=== PATIENT | male | born 1960 | race Caucasian/White ===

== ENCOUNTER 2016-09-06 20:55 | Observation (INO) | payer MEDICAID ==
[~2016-09-06] VITALS: Ht 190.5 cm; Wt 77.5 kg
[~2016-09-06 20:55] MED LIST: AMITRIPTYLINE H50 M1 PO; AMOXICILLIN 8751 TAB PO; AMOXICILLIN/CLA1 TA1 PO; AUGMENTIN XR 101 TER PO; CIPRO 500MG TA500 MG PO; CLEOCIN HC150 MG/CAP PO; CLEOCIN HCL300 MG PO; CLONAZEPAM2 M1 PO; CLONAZEPAM2 MG PO; DAZIDOX10 MG PO; DILAUDID 2MG TAB2 MG PO; DILAUDID 4MG TAB4 MG PO; ELAVIL75 MG PO; ERY-TAB250 M1 PO; FLAGYL500 MG PO; HCTZ 25MG TAB25 MG PO; KLONOPIN 0.5MG0.5 MG PO; KLONOPIN 1MG1 MG PO; KLONOPIN2 MG PO; LEVAQUIN 5500 MG/TA1 PO; LORTAB 7.5/5001 TAB PO; METHADONE H10 MG/TAB PO; METRONIDAZOLE500 MG PO; MORPHINE 1515 MG/TAB PO; NO HOME MEDICATIONS; NORCO 325 MG-101 TAB PO; NORCO 325 MG-51 TAB PO; NORCO 325 MG-7.1 TAB PO; OXYCONTIN15 MG PO; PERCOCET 325 MG1 TA2 PO; PERCOCET 325 MG1 TAB PO; PHENERGAN 25 TA25 MG PO; PHENERGAN25 MG RC; PRINIVIL20 MG PO; PROMETHAZINE12.5 M5 PO; ROXICODONE 55 MG/TAB PO; ULTRAM 50MG TAB50 MG PO; XANAX 0.5MG0.5 MG PO; ZOFRAN ODT4 MG PO; ZOFRAN ODT8 MG PO; ZOFRAN8 MG PO; [UNRECOGNIZED DRUG - REMARK]
[2016-09-06 21:29] LABS: PH 7 (5-8); SQUAMOUS EPITHELIAL None Seen /hpf; URINE APPEARANCE Clear; URINE BACTERIA None Seen /hpf; URINE BILIRUBIN Negative (NEGATIVE); URINE BLOOD Negative (NEGATIVE); URINE GLUCOSE Negative (NEGATIVE); URINE KETONE Negative (NEGATIVE); URINE UROBILINOGEN Negative (NEGATIVE); URINE WBC 0-2 /hpf
[2016-09-06 21:34] LABS: URINE COLOR Yellow
[2016-09-06 23:42] LABS: BASO % 0.2 % (0.0-2.0); EOS % 0.1 % (0-4.0); GRAN # 13.3 (1.4-6.5); HEMATOCRIT 40.9 % (42.0-52.0); LYMPH % 6.9 % (20.0-51.0); MEAN CELL VOLUME 82 fl (80.0-100.0); MEAN CORPUSCULAR HEMOGLOBIN 28 pg (27.0-31.0); MEAN CORPUSCULAR HGB CONC 34 g/dl (33.0-37.0); MONO # 0.7 (0.1-0.6); MONO % 4.4 % (1.7-9.3); PLATELET COUNT 309 K/mm3 (130-400); RED BLOOD COUNT 4.99 M/mm3 (4.20-5.60); REDCELL DISTRIBUTION WIDTH-CV 15.8 % (11.5-14.5); WHITE BLOOD COUNT 15.1 K/mm3 (4.8-10.8)
[2016-09-06 23:53] LABS: ADJUSTED CALCIUM 9.5 mg/dL (8.4-10.2); ALBUMIN 4.1 gm/dL (3.5-5.0); BILIRUBIN,TOTAL 0.7 mg/dL (0.0-1.0); CALCIUM 9.6 mg/dL (8.4-10.2); CREATININE, serum 1.29 mg/dL (0.66-1.25); POTASSIUM 4.6 mmol/L (3.4-5.0); TOTAL PROTEIN 8.3 gm/dL (6.4-8.2)
[2016-09-07 01:35] VITALS: BP 134/86; PULSE 69; TEMP 98.5
[2016-09-07 06:11] VITALS: BP 113/65; PULSE 68; TEMP 98.2
[2016-09-07 09:32] VITALS: BP 134/73; PULSE 66; TEMP 98.7
[2016-09-07 13:09] VITALS: BP 127/72; PULSE 79; TEMP 98
[2016-09-07 17:08] VITALS: BP 107/62; PULSE 61; TEMP 98.1
[2016-09-07 21:53] VITALS: BP 142/81; PULSE 99; TEMP 97.6
[2016-09-08 02:07] VITALS: BP 124/83; PULSE 91; TEMP 98.1
[2016-09-08 04:41] VITALS: BP 125/68; PULSE 72; TEMP 98
[2016-09-08 06:43] LABS: HEMATOCRIT 37.2 % (42.0-52.0); HEMOGLOBIN 12.1 g/dl (13.5-18.0); MEAN CELL VOLUME 84 fl (80.0-100.0); MEAN CORPUSCULAR HEMOGLOBIN 27 pg (27.0-31.0); MEAN CORPUSCULAR HGB CONC 33 g/dl (33.0-37.0); MEAN PLATELET VOLUME 11.7 fl (7.4-10.4); PLATELET COUNT 304 K/mm3 (130-400); RED BLOOD COUNT 4.42 M/mm3 (4.20-5.60); REDCELL DISTRIBUTION WIDTH-CV 15.4 % (11.5-14.5); WHITE BLOOD COUNT 10.6 K/mm3 (4.8-10.8)
[2016-09-08 07:02] LABS: CALCIUM 9.1 mg/dL (8.4-10.2); CREATININE, serum 1.43 mg/dL (0.66-1.25); POTASSIUM 3.9 mmol/L (3.4-5.0)
[2016-09-08 10:51] VITALS: BP 125/78; PULSE 70; TEMP 98.4
== END 2016-09-08 11:30 | disposition home or self-care (01) ==
LOC: COL.ER 20:55 → SURG 09-07 01:08 → COL.ER 09-07 01:08 → SURG 09-08 11:30
PROVIDERS: Emergency Medicine; Surgery
DX: K56.69 Other intestinal obstruction (principal); G89.29 Other chronic pain; F17.210 Nicotine dependence, cigarettes, uncomplicated
CPT/HCPCS: G0378; J1170; J1650; J1885; J2405; J7030; J7120; Q9967

== ENCOUNTER 2016-09-11 12:37 | Emergency (ER) | payer MEDICAID ==
[~2016-09-11] VITALS: Ht 190.5 cm; Wt 90.9 kg
[2016-09-11 12:41] VITALS: TEMP 97.7
[2016-09-11 13:26] LABS: BASO # 0.1 (0.0-0.2); BASO % 0.4 % (0.0-2.0); EOS # 0.4 (0.0-0.7); EOS % 2.4 % (0-4.0); GRAN % 76.3 % (42.2-75.2); HEMATOCRIT 45.4 % (42.0-52.0); LYMPH # 2.4 (1.2-3.4); LYMPH % 15.1 % (20.0-51.0); MEAN CELL VOLUME 84 fl (80.0-100.0); MEAN CORPUSCULAR HEMOGLOBIN 28 pg (27.0-31.0); MEAN CORPUSCULAR HGB CONC 33 g/dl (33.0-37.0); MEAN PLATELET VOLUME 10.4 fl (7.4-10.4); MONO # 0.8 (0.1-0.6); PLATELET COUNT 467 K/mm3 (130-400); RED BLOOD COUNT 5.43 M/mm3 (4.20-5.60); REDCELL DISTRIBUTION WIDTH-CV 15.9 % (11.5-14.5); WHITE BLOOD COUNT 15.7 K/mm3 (4.8-10.8)
[2016-09-11 13:33] LABS: ADJUSTED CALCIUM 9.9 mg/dL (8.4-10.2); ALBUMIN 4.9 gm/dL (3.5-5.0); BILIRUBIN,TOTAL 0.6 mg/dL (0.0-1.0); CALCIUM 10.6 mg/dL (8.4-10.2); CREATININE, serum 2.01 mg/dL (0.66-1.25); POTASSIUM 4.6 mmol/L (3.4-5.0); TOTAL PROTEIN 9.3 gm/dL (6.4-8.2)
[2016-09-11] MEDS ORDERED: ZOFRAN ODT4 MG PO (15:09)
[2016-09-11 15:35] VITALS: BP 136/91; PULSE 84
== END 2016-09-11 15:37 | disposition home or self-care (01) ==
LOC: COL.ER 12:37
PROVIDERS: Emergency Medicine
DX: R10.9 Unspecified abdominal pain (principal); R11.10 Vomiting, unspecified
CPT/HCPCS: J1170; J2550; J2765; J7030

== ENCOUNTER 2016-10-28 19:45 | Emergency (ER) | payer MEDICAID ==
[~2016-10-28] VITALS: Ht 190.5 cm; Wt 93.2 kg
[2016-10-28 19:48] VITALS: BP 142/96; TEMP 99.7
[2016-10-28 20:44] LABS: BASO # 0.1 (0.0-0.2); BASO % 0.8 % (0.0-2.0); EOS # 0.6 (0.0-0.7); EOS % 4.3 % (0-4.0); GRAN # 9.1 (1.4-6.5); GRAN % 68.9 % (42.2-75.2); HEMOGLOBIN 12.1 g/dl (13.5-18.0); LYMPH # 2.4 (1.2-3.4); LYMPH % 18.1 % (20.0-51.0); MEAN CELL VOLUME 86 fl (80.0-100.0); MEAN CORPUSCULAR HEMOGLOBIN 28 pg (27.0-31.0); MEAN CORPUSCULAR HGB CONC 33 g/dl (33.0-37.0); MEAN PLATELET VOLUME 10.7 fl (7.4-10.4); MONO % 7.4 % (1.7-9.3); PLATELET COUNT 353 K/mm3 (130-400); RED BLOOD COUNT 4.27 M/mm3 (4.20-5.60); REDCELL DISTRIBUTION WIDTH-CV 16.7 % (11.5-14.5); WHITE BLOOD COUNT 13.2 K/mm3 (4.8-10.8)
[2016-10-28 20:52] LABS: HEMATOCRIT 36.6 % (42.0-52.0)
[2016-10-28 20:53] LABS: ADJUSTED CALCIUM 9.3 mg/dL (8.4-10.2); BILIRUBIN,TOTAL 0.5 mg/dL (0.0-1.0); CALCIUM 9.3 mg/dL (8.4-10.2); CREATININE, serum 1.45 mg/dL (0.66-1.25); POTASSIUM 3.7 mmol/L (3.4-5.0); TOTAL PROTEIN 7.5 gm/dL (6.4-8.2)
[2016-10-28 22:29] LABS: PH 8 (5-8); SQUAMOUS EPITHELIAL None Seen /hpf; URINE APPEARANCE Hazy; URINE BACTERIA None Seen /hpf; URINE BILIRUBIN Negative (NEGATIVE); URINE BLOOD Negative (NEGATIVE); URINE COLOR Yellow; URINE GLUCOSE Negative (NEGATIVE); URINE KETONE Negative (NEGATIVE); URINE RBC 0-2 /hpf; URINE UROBILINOGEN Negative (NEGATIVE); URINE WBC 0-2 /hpf
[2016-10-28] MEDS ORDERED: PHENERGAN 25 TA25 MG PO (23:06)
[2016-10-28 23:48] VITALS: PULSE 64
== END 2016-10-28 23:48 | disposition home or self-care (01) ==
LOC: COL.ER 19:45
PROVIDERS: Emergency Medicine
DX: R11.2 Nausea with vomiting, unspecified (principal); R10.84 Generalized abdominal pain
CPT/HCPCS: J1170; J2405; J2550; J7030

== ENCOUNTER 2016-11-24 17:00 | Emergency (ER) | payer MEDICAID ==
[~2016-11-24] VITALS: Ht 190.5 cm; Wt 90.9 kg
[2016-11-24 17:05] VITALS: TEMP 98.4
[2016-11-24] MEDS ORDERED: ZOFRAN ODT8 MG PO (17:56)
[2016-11-24 18:25] LABS: BASO # 0.1 (0.0-0.2); BASO % 0.5 % (0.0-2.0); EOS # 0.3 (0.0-0.7); EOS % 2.3 % (0-4.0); GRAN # 10.6 (1.4-6.5); GRAN % 77.8 % (42.2-75.2); HEMATOCRIT 42.5 % (42.0-52.0); HEMOGLOBIN 14.1 g/dl (13.5-18.0); LYMPH # 1.8 (1.2-3.4); LYMPH % 13.1 % (20.0-51.0); MEAN CELL VOLUME 85 fl (80.0-100.0); MEAN CORPUSCULAR HEMOGLOBIN 28 pg (27.0-31.0); MEAN CORPUSCULAR HGB CONC 33 g/dl (33.0-37.0); MEAN PLATELET VOLUME 10.9 fl (7.4-10.4); MONO # 0.8 (0.1-0.6); MONO % 5.9 % (1.7-9.3); PLATELET COUNT 365 K/mm3 (130-400); RED BLOOD COUNT 5.02 M/mm3 (4.20-5.60); REDCELL DISTRIBUTION WIDTH-CV 16.6 % (11.5-14.5); WHITE BLOOD COUNT 13.6 K/mm3 (4.8-10.8)
[2016-11-24 19:12] LABS: ADJUSTED CALCIUM 9.3 mg/dL (8.4-10.2); ALBUMIN 4.5 gm/dL (3.5-5.0); BILIRUBIN,TOTAL 0.6 mg/dL (0.0-1.0); CALCIUM 9.7 mg/dL (8.4-10.2); CREATININE, serum 1.8 mg/dL (0.66-1.25); POTASSIUM 4.3 mmol/L (3.4-5.0); TOTAL PROTEIN 8.4 gm/dL (6.4-8.2)
[2016-11-24] MEDS ORDERED: ULTRAM 50MG TAB50 MG PO (20:49)
[2016-11-24] MEDS ORDERED: ZOFRAN8 MG PO (20:49)
[2016-11-24 21:38] VITALS: BP 118/72; PULSE 70
== END 2016-11-24 21:51 | disposition home or self-care (01) ==
LOC: COL.ER 17:00
PROVIDERS: Emergency Medicine
DX: R10.31 Right lower quadrant pain (principal); R10.32 Left lower quadrant pain; R10.2 Pelvic and perineal pain; R11.10 Vomiting, unspecified; R19.7 Diarrhea, unspecified; Z93.2 Ileostomy status
CPT/HCPCS: J1170; J1885; J2405; J2765; J7030

== ENCOUNTER 2017-12-25 21:50 | Emergency (ER) | payer MEDICARE ==
[~2017-12-25] VITALS: Ht 190.5 cm; Wt 90.9 kg
[2017-12-25 22:32] LABS: BASO # 0.1 (0.0-0.2); BASO % 0.4 % (0.0-2.0); EOS # 0.5 (0.0-0.7); EOS % 2.8 % (0-4.0); GRAN # 12.3 (1.4-6.5); HEMATOCRIT 40.4 % (42.0-52.0); HEMOGLOBIN 13.7 g/dl (13.5-18.0); LYMPH % 12.7 % (20.0-51.0); MEAN CELL VOLUME 85 fl (80.0-100.0); MEAN CORPUSCULAR HEMOGLOBIN 29 pg (27.0-31.0); MEAN CORPUSCULAR HGB CONC 34 g/dl (33.0-37.0); MEAN PLATELET VOLUME 10.3 fl (7.4-10.4); MONO # 1.2 (0.1-0.6); MONO % 7.7 % (1.7-9.3); PLATELET COUNT 308 K/mm3 (130-400); RED BLOOD COUNT 4.76 M/mm3 (4.20-5.60); REDCELL DISTRIBUTION WIDTH-CV 14.6 % (11.5-14.5)
[2017-12-25 22:34] VITALS: TEMP 98.8
[2017-12-25 22:41] LABS: BILIRUBIN,TOTAL 0.2 mg/dL (0.0-1.0); CREATININE, serum 1.3 mg/dL (0.66-1.25); POTASSIUM 3.7 mmol/L (3.4-5.0); TOTAL PROTEIN 7.9 gm/dL (6.4-8.2)
[2017-12-25 23:12] LABS: COLLECTION METHOD CLEAN CATCH
[2017-12-25 23:21] LABS: MUCOUS Present /lpf; PH 6 (5-8); SQUAMOUS EPITHELIAL 0-2 /hpf; URINE APPEARANCE Hazy; URINE BACTERIA None Seen /hpf; URINE BILIRUBIN Negative (NEGATIVE); URINE BLOOD 3+ (NEGATIVE); URINE COLOR Yellow; URINE GLUCOSE Negative (NEGATIVE); URINE KETONE Negative (NEGATIVE); URINE LEUKOCYTE ESTERASE 1+ (NEGATIVE); URINE NITRATE Negative (NEGATIVE); URINE PROTEIN(semi-quant) 2+ (NEGATIVE); URINE RBC >50 /hpf
[2017-12-26] MEDS ORDERED: CIPRO 500MG TA500 MG PO (00:05)
[2017-12-26] MEDS ORDERED: CLEOCIN HCL300 MG PO (00:16)
[2017-12-26 01:08] VITALS: BP 132/92; PULSE 97
[2017-12-26] MEDS ORDERED: ZOFRAN ODT4 MG PO (07:16)
== END 2017-12-26 01:10 | disposition home or self-care (01) ==
LOC: COL.ER 21:50
PROVIDERS: Emergency Medicine
DX: N30.90 Cystitis, unspecified without hematuria (principal); K04.7 Periapical abscess without sinus; K21.9 Gastro-esophageal reflux disease without esophagitis; F17.210 Nicotine dependence, cigarettes, uncomplicated; Z90.89 Acquired absence of other organs
CPT/HCPCS: J0696; J1170; J2405; J2765; J7030

== ENCOUNTER → 2022-04-26 | Outpatient (CLI) | payer MEDICARE | LOC: ZCOL.LAB 17:11 | DX: L03.317 Cellulitis of buttock (principal); L02.415 Cutaneous abscess of right lower limb ==